=== PATIENT | male | born 1990 | race Caucasian/White ===

== ENCOUNTER 2018-04-22 03:11 | Emergency (ER) | payer OTHER ==
[2018-04-22 03:18] VITALS: O2SAT 98
[2018-04-22 04:04] LABS: BASO # 0.1 K/uL (0.0-0.2); BASO % 0.9 % (0.0-2.0); EOS % 0.2 % (0.0-4.0); HEMOGLOBIN 15.2 g/dL (12.0-18.0); LYMPH # 1.4 K/uL (1.0-4.3); LYMPH % 13.5 % (20.0-40.0); MEAN CELL VOLUME 87.3 fl (80.0-94.0); MEAN CORPUSCULAR HEMOGLOBIN 28.3 pg (27.0-31.0); MEAN CORPUSCULAR HGB CONC 32.4 g/dL (33.0-37.0); MEAN PLATELET VOLUME 8.1 fl (7.2-11.7); MONO # 0.6 K/uL (0.0-0.8); MONO % 5.5 % (0.0-10.0); NEUT # 8.2 K/uL (1.8-7.0); NEUT % 79.9 % (50.0-75.0); NRBC % 0.1 % (0.0-0.0); RBC 5.37 Mil/uL (4.40-5.90); RED CELL DISTRIBUTION WIDTH 13.6 % (11.5-14.5); WHITE BLOOD COUNT 10.3 K/uL (4.8-10.8)
[2018-04-22 04:14] LABS: ALB/GLOB RATIO 1.4 (1.0-2.1); ALT/SGPT 22 U/L (21-72); AST/SGOT 25 U/L (17-59); BLOOD UREA NITROGEN 9 mg/dl (9-20); CALCIUM 9.5 mg/dL (8.4-10.2); GFR NON-AFRICAN AMERICAN > 60
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
[2018-04-22 06:55] LABS: URINE BILIRUBIN NEGATIVE (NEGATIVE); URINE BLOOD NEGATIVE (NEGATIVE); URINE CLARITY CLEAR (Clear); URINE COLOR YELLOW (YELLOW); URINE GLUCOSE (UA) NEG (NEGATIVE); URINE LEUKOCYTE ESTERASE NEG Leu/uL (Negative); URINE PROTEIN NEGATIVE (NEGATIVE)
[2018-04-22 06:57] LABS: BARBITURATES, UR NEGATIVE (NEGATIVE); BENZODIAZEPINES, UR NEGATIVE (NEGATIVE); OPIATES, UR NEGATIVE (NEGATIVE); PHENCYCLIDINE, UR NEGATIVE (NEGATIVE)
--- NOTE | 2018-04-22 07:00 | ED PDOC ---
- Laboratory Results Result Diagrams: 04/22/18 03:40 04/22/18 03:40 Lab Results: Total Bilirubin 1.0 mg/dl (0.2-1.3) 04/22/18 03:40 AST 25 U/L (17-59) 04/22/18 03:40 ALT 22 U/L (21-72) 04/22/18 03:40 Alkaline Phosphatase 56 U/L (38-126) 04/22/18 03:40 Total Protein 8.5 G/DL (6.3-8.2) H 04/22/18 03:40 Albumin 5.0 g/dL (3.5-5.0) 04/22/18 03:40 Globulin 3.5 gm/dL (2.2-3.9) 04/22/18 03:40 Albumin/Globulin Ratio 1.4 (1.0-2.1) 04/22/18 03:40 Urine Color Yellow (YELLOW) 04/22/18 06:20 Urine Clarity Clear (Clear) 04/22/18 06:20 Urine pH 6.0 (5.0-8.0) 04/22/18 06:20 Ur Specific [place] 1.015 (1.003-1.030) 04/22/18 06:20 Urine Protein Negative mg/dL (NEGATIVE) 04/22/18 06:20 Urine Glucose (UA) Neg mg/dL (NEGATIVE) 04/22/18 06:20 Urine Ketones Negative mg/dL (NEGATIVE) 04/22/18 06:20 Urine Blood Negative (NEGATIVE) 04/22/18 06:20 Urine Nitrate Negative (NEGATIVE) 04/22/18 06:20 Urine Bilirubin Negative (NEGATIVE) 04/22/18 06:20 Urine Urobilinogen 4.0 mg/dL (0.2-1.0) 04/22/18 06:20 Ur Leukocyte Esterase Neg Breanne/uL (Negative) 04/22/18 06:20 Urine RBC (Auto) 1 /hpf (0-3) 04/22/18 06:20 Urine Microscopic WBC 1 /hpf (0-5) 04/22/18 06:20 - ECG O2 Sat by Pulse Oximetry: 98 (RA) Medical Decision Making Medical Decision Makin:00 Patient endorsed to provider by Dr. Tucker pending [facility] evaluation. 11:10 Patient was diagnosed as substance abuse, per Dr. Estrella. Patient was screened by [facility] and was not accepted. Patient is medically and psychiatrically clear for discharge home. Scribe Attestation: Documented by Jax Quan, acting as a scribe for Jo Tierney MD Provider Scribe Attestation: All medical record entries made by the Scribe were at my direction and personally dictated by me. I have reviewed the chart and agree that the record accurately reflects my personal performance of the history, physical exam, medical decision making, and the department course for this patient. I have also personally directed, reviewed, and agree with the discharge instructions and disposition. Disposition Counseled Patient/Family Regarding: Studies Performed, Diagnosis - Clinical Impression Clinical Impression: Substance abuse - POA Present On Arrival: None - Disposition Referrals: Community Mental Health [Outside] Disposition: Routine/Home Disposition Time: 11:10 Condition: GOOD Additional Instructions: FOR MENTAL HEALTH FOLLOW UP WITH [facility] [address] [place] [address] MONDAY-MONDAY: 9AM-8PM MONDAY AND MONDAY: 10AM-6PM FOR ADDICTION SERVICES CONTACT [facility] HOTLINE 24/10 Instructions: Drug Abuse and Drug Addiction (DC)
[2018-04-22 11:00] VITALS: BP 135/77; RESP 18; TEMP 98.9
[2018-04-22 11:30] VITALS: PULSE 85
== END 2018-04-22 11:17 | disposition home or self-care (01) ==
LOC: H.ER 03:11
DX: F19.10 Other psychoactive substance abuse, uncomplicated (principal); Z00.8 Encounter for other general examination